=== PATIENT | female | born 1950 | race Caucasian/White ===

== ENCOUNTER 2017-10-11 11:49 | Emergency (ER) | payer MEDICARE, BC ==
[~2017-10-11] VITALS: Ht 165.1 cm; Wt 64.4 kg
[~2017-10-11 11:49] MED LIST: CITA10TA17 PO; FLEXERIL PO
--- NOTE | 2017-10-11 12:29 | NUR ---
rapid influenza swab sent to lab.
[2017-10-11] MEDS ORDERED: OSELTAMIVIR PHOSPHATE 75 MG CAPSULE PO ONE (13:20)
[2017-10-11] MEDS ORDERED: predniSONE 20 MG TABLET PO ONE (13:30)
[2017-10-11] MEDS ORDERED: GUAIFENESIN/CODEINE 5 ML LIQUID UDC PO ONE (13:30)
[2017-10-11] MEDS ORDERED: GUAIFENESIN/CODEINE 5 ML LIQUID UDC ONE (13:38)
[2017-10-11] MEDS ORDERED: OSELTAMIVIR PHOSPHATE 75 MG CAPSULE ONE (13:39)
[2017-10-11] MEDS ORDERED: predniSONE 20 MG TABLET ONE (13:39)
--- NOTE | 2017-10-11 13:52 | NUR ---
Patient discharged to home in stable conditon. Written and verbal after care instructions given. Patient verbalizes understanding of instructions.
[2017-10-11 13:54] VITALS: BP 113/74
== END 2017-10-11 13:54 | disposition home or self-care (01) ==
LOC: ER 11:49
DX: J10.1 Influenza due to other identified influenza virus with other respiratory manifestations (principal)
CPT/HCPCS: 71010; 87400; 99285; A4663; J7512

== ENCOUNTER 2021-06-12 10:50 | Inpatient (IN) | payer MEDICARE, BC ==
[~2021-06-12] VITALS: Ht 167.6 cm; Wt 62.6 kg
[2021-06-12] MEDS ORDERED: BISA-79 PO (11:12)
[2021-06-12] MEDS ORDERED: POLY17PO4 PO (11:12)
--- NOTE | 2021-06-12 11:46 | NUR ---
Patient is in CT scan@this time.
--- NOTE | 2021-06-12 11:55 | NUR ---
Patient is back from CT scan in same condition, NAD.
[2021-06-12] MEDS ORDERED: IV NORMAL SALINE 1000 ML BAG IV ONE (12:30)
[2021-06-12] MEDS ORDERED: PIPERACILLIN SODIUM/TAZOBACTAM 3.375 G in IV DEXTROSE 5% 50 ML IV ONE (12:30)
[2021-06-12] MEDS ORDERED: PIPERACILLIN/TAZOBACTAM/D5W 50 ML IV ONE (12:36)
[2021-06-12 12:47] LABS: HEMATOCRIT 39.5 % (31.2-41.9); MEAN CORPUSCULAR HEMOGLOBIN 31.6 uug (24.7-32.8); MEAN CORPUSCULAR VOLUME 93.2 fL (75.5-95.3); PLATELET COUNT (AUTO) 250 K/uL (179-408)
[2021-06-12 12:55] LABS: BILIRUBIN,DIRECT 0.1 mg/dL (0.0-0.2); BILIRUBIN,TOTAL 0.5 mg/dL (0.2-1.0); CREATININE 0.9 mg/dL (0.6-1.3); POTASSIUM 4.3 mmol/L (3.5-5.1); TOTAL PROTEIN, SERUM 7.7 g/dL (6.4-8.2)
[2021-06-12] MEDS ORDERED: ONDANSETRON 4 MG/2 ML VIAL ONE (13:43)
[2021-06-12] MEDS ORDERED: MORPHINE SULFATE 2 MG/1 ML DISP.SYRIN ONE (13:43)
[2021-06-12] MEDS ORDERED: ONDANSETRON 4 MG/2 ML VIAL IV ONE (13:45)
[2021-06-12] MEDS ORDERED: MORPHINE SULFATE 2 MG/1 ML DISP.SYRIN IV ONE (13:45)
--- NOTE | 2021-06-12 14:30 | NUR ---
received from ER per cynthia awake, alert and oriented, looks comfortable at this time, on room air, vs taken and initial assessment and physical assessment started, informed pt that cant give her anything orally yet til we get orders form MD, saline lock noted on left hand area- no swelling noted at this time
[2021-06-12 14:34] VITALS: BP 170/92
--- NOTE | 2021-06-12 15:30 | NUR ---
Dr Macario informed that pt is in room 304 and for orders
[2021-06-12] MEDS ORDERED: BISACODYL 5 MG TABLET.DR PO PRN (15:45)
--- NOTE | 2021-06-12 15:55 | NUR ---
called Dr Longoria and informed of pt's refusing to take Golytely and wants to know when GI MD to see her and doesn't want to be here waiting and MD not coming tonite. Dr Espinoza was notified in ER and informed pt that GI MD is aware of the consult
[2021-06-12] MEDS ORDERED: ONDANSETRON 4 MG/2 ML VIAL IV PRN (16:00)
[2021-06-12] MEDS ORDERED: MORPHINE SULFATE 2 MG/1 ML DISP.SYRIN IV PRN (16:00)
[2021-06-12] MEDS ORDERED: ACETAMINOPHEN 325 MG TABLET PO PRN (16:00)
[2021-06-12] MEDS ORDERED: GOLYTELY 4000 ML BOTTLE PO ONE (16:00)
[2021-06-12] MEDS ORDERED: IV D5 1/2 NS 1000 ML 1,000 ML IV PRN (16:00)
--- NOTE | 2021-06-12 16:00 | NUR ---
is here visiting and also asking about [facility]
[2021-06-12 16:53] VITALS: BP 154/85
--- NOTE | 2021-06-12 17:40 | NUR ---
pt decided to go AMA- papers signed, Dr Macario informed.
--- NOTE | 2021-06-12 18:00 | NUR ---
left with with all belongings
[2021-06-12] MEDS ORDERED: PIPERACILLIN SODIUM/TAZOBACTAM 3.375 G in IV DEXTROSE 5% 100 ML IV SCH (21:00)
[2021-06-12] MEDS ORDERED: PIPERACILLIN SODIUM/TAZOBACTAM 3.375 G in IV DEXTROSE 5% 50 ML IV SCH (22:00)
[2021-06-13] MEDS ORDERED: PANTOPRAZOLE SODIUM 40 MG TABLET.DR PO SCH (07:00)
[2021-06-13] MEDS ORDERED: MIRALAX 17 GM POWD.PACK PO SCH (09:00)
[2021-06-13] MEDS ORDERED: CITALOPRAM 10 MG TABLET PO SCH (09:00)
== END 2021-06-12 18:00 | disposition left against medical advice (07) | DRG 395 ==
LOC: ER 10:50 → MEDSURG3 13:51
PROVIDERS: ADMIT Internal Medicine; ATTEND Internal Medicine
DX: K62.6 Ulcer of anus and rectum (principal); K59.09 Other constipation; Z20.822 Contact with and (suspected) exposure to COVID-19; K62.89 Other specified diseases of anus and rectum
CPT/HCPCS: 36415; 71045; 83690; 84443; 85025; 93005; A4663; G0378; J2270; J2405; J2543; J3490; J7030; J7060